=== PATIENT | female | born 1960 | race American Indian/Alaskan Native ===

== ENCOUNTER 2017-05-05 05:57 | Day surgery (SDC) | payer MEDICAID ==
[2017-05-05] MEDS: VIGAMOX OS SCH ×3 (07:10→07:20)
[2017-05-05] MEDS: TETRACAINE 0.5% OS PRN ×2 (07:10→07:15)
[2017-05-05] MEDS: MYDRIACYL OS SCH ×3 (07:10→07:20)
[2017-05-05] MEDS: AK-Dilate OS SCH ×3 (07:10→07:20)
--- NOTE | 2017-05-05 07:41 | Anesthesia Consultation ---
Anesthesia Consult and Med Hx Date of service: 05/05/17 - Airway Anesthetic Teeth Evaluation: Partials ROM Head & Neck: Adequate Mental/Hyoid Distance: Adequate Mallampati Class: Class II Intubation Access Assessment: Probably Good - Pre-Operative Health Status ASA Pre-Surgery Classification: ASA2 Proposed Anesthetic Plan: MAC (HIV) - Pulmonary Hx Smoking: Yes (1PPD FOR 20 YEARS) Hx Asthma: No COPD: No Hx Pneumonia: No Hx Sleep Apnea: No - Cardiovascular System Hx Hypertension: No Hx Coronary Artery Disease: No Hx Heart Attack/AMI: No Hx Angina: No Hx Percutaneous Transluminal Coronary Angioplasty (PTCA): No Hx Pacemaker: No Hx Internal Defibrillator: No Hx Valvular Heart Disease: No Hx Heart Murmur: No Hx Peripheral Vascular Disease: No - Central Nervous System Hx Seizures: No CVA: No Hx Psychiatric Problems: No - Gastrointestinal Hx Ulcer: No - Endocrine Hx End Stage Renal Disease: No Hx Cirrhosis: No - Other Systems Hx Alcohol Use: No Hx Substance Use: No Hx Cancer: No
--- NOTE | 2017-05-05 07:41 | Anesthesia Day of Surgery ---
Anesthesia Day of Surgery - Day of Surgery Patient Examined: Yes Patient H&P Reviewed: Yes Patient is NPO: Yes
[2017-05-05] MEDS ORDERED: NACL 0.9% 1000 ML 1,000 ML IV SCH (08:00)
[2017-05-05] MEDS ORDERED: VERSED ONE (08:36)
[2017-05-05] MEDS ORDERED: WATER FOR INJ (PF) 10 ML ONE (08:37)
[2017-05-05] MEDS ORDERED: DIAMOX PO NR (09:00)
--- NOTE | 2017-05-05 09:01 | Operative Report ---
Operative Report Operative Report: PATIENT'S NAME: DATE OF : DATE OF SURGERY: 05/05/2017 PREOPERATIVE DIAGNOSIS: Cataract left eye POSTOPERATIVE DIAGNOSIS: Same OPERATIVE PROCEDURE: Phacoemulsification with intraocular lens implantation, left eye SURGEON: Le Ruiz M.D. ROAD ENGINEER FREIGHT SURGEON: Margarito Lens: [id number] 19.0 D ANESTHESIA: Monitored anesthesia care in combination with topical and intracameral anesthesia because of the established specific risk of reflux, arrhythmias, or anxiety attacks associated with ocular manipulation, as well as the difficulty of the forklift technician to manage such potentially catastrophic events while simultaneously attempting to complete the surgical procedure and was deemed necessary for the patient's safety to have an Safety Advisor present during the procedure whenever possible. An Safety Advisor was utilized to regulate the intravenous sedation of the patient so the patient was cooperative yet not asleep in order for the patient to successfully maintain fixation of the eye on the operating light of the microscope. COMPLICATIONS: No surgical complications No blood loss. ALLERGIES: No known drug allergies PROGNOSIS: Excellent INDICATIONS FOR SURGERY: The patient is undergoing surgery in the hopes of eliminating or improving these visual difficulties. PROCEDURE: After arriving at the surgery center, the patient was given topical anesthetic and dilating drops, as noted in the record. The patient was then taken into the operating room and given more anesthetic drops. The eyelids , lashes, and lid margins were scrubbed with Betadine solution, and the patient was draped. The Nurse Safety Advisor administered IV sedation and monitored the patient during the procedure. The eye was then fixated with a 0.12, and a stab incision was made in the peripheral clear cornea into the anterior chamber. This was made on my left side. Viscoelastic was next used to fill the anterior chamber. The eye was once again fixated with the 0.12 forceps and a keratome was used make an incision in clear cornea peripherally on my right hand side temporally. The capsule forceps were used to open the central anterior capsule and then make a continuous round capsulotomy. Hydrodissection was carried out utilizing a cannula and balanced salt solution to delineate the cortical material from the capsule and the nucleus from the cortical material. The phaco tip was introduced into the eye and used to remove the anterior cortical material in the area of the capsulotomy. Then the phaco tip was buried into the nucleus, and a chopping instrument was introduced into the eye and used to provide countertraction in the nucleus between this instrument and the phaco tip fracturing the nucleus. This procedure was repeated multiple times, providing multiple small segments of the lens, and then the phaco tip was used to remove each of these segments. An I/A tip was then used to remove the remaining cortex. The anterior chamber was refilled with viscoelastic. An one-piece, acrylic intraocular lens was then placed into an inserting cartridge. The tip of the inserting cartridge was introduced into the keratome incision and into the anterior chamber. The implant was gently advanced through the cartridge and into the eye, where it unfolded, and both haptics were placed in the capsular bag, where it centered nicely and appeared to be well fixated. After placement of the intraocular lens, the I~and~A handpiece was placed back into the eye and used to remove the viscoelastic, including viscoelastic that was behind the optic of the intraocular lens. The anterior chamber was then filled with balanced salt solution, and hydration of the wound was used to cause swelling of the wound and more appropriate watertight closure. When the wound was found to be firm, the patient was asked to comment on how bright the light was. If there was no light perception at all or if the light was substantially dimmer than during the rest of the surgery, the amount of fluid in the eye was decompressed to lower the intraocular pressure until the patient could see the bright light again. This was done to avoid any damage or decreased blood flow to the optic nerve. MEDICATIONS APPLIED AT END OF SURGERY: One drop of Pred Forte and Vigamox The patient was given a shield to wear at night and was instructed not to rub or push on the eye. DISCHARGE SUMMARY: The patient was released in stable condition. The patient and those with the patient were given a written sheet of postoperative instructions and counseling on any abnormal laboratory studies. The patient is to see us tomorrow for follow-up in the office and is to call immediately for any difficulties. Le Ruiz M.D. Date
--- NOTE | 2017-05-05 09:02 | Short Stay Summary ---
Short Stay Documentation Date of service: 05/05/17 - History H&P: obtained from office - Allergies and Medications Current Medications: Allergies No Known Allergies Allergy (Verified 05/04/17 13:46) Home Medications Medication Instructions Recorded Confirmed Last Taken Type Efavirenz/Emtricitab/Tenofovir 1 mg PO QHS 02/01/14 05/05/17 05/04/17 History [Atripla Tablet] Active Medications Acetazolamide (Diamox) 500 mg PO BID ONE Stop: 05/05/17 09:01 Sodium Chloride (Nacl 0.9% 1000 Ml) 1,000 mls @ 100 mls/hr IV DIRECT SARAH Moxifloxacin HCl (Vigamox) 1 drops OS Q5MIN [facility] Stop: 05/05/17 23:59 Last Admin: 05/05/17 07:20 Dose: 1 drops Phenylephrine HCl (Ak-Dilate) 1 drops OS Q5MIN [facility] Stop: 05/05/17 23:59 Last Admin: 05/05/17 07:20 Dose: 1 drops Prednisolone Acetate (Pred Forte 1%) 1 drops OS QID [facility] Tetracaine HCl (Tetracaine 0.5%) 1 drops OS Q5M PRN PRN Reason: Analgesia Stop: 05/05/17 23:59 Last Admin: 05/05/17 07:15 Dose: 1 drops Tropicamide (Mydriacyl) 1 drops OS Q5MIN [facility] Stop: 05/05/17 23:59 Last Admin: 05/05/17 07:20 Dose: 1 drops - Brief post op/procedure progress note Date of procedure: 05/05/17 Pre-op diagnosis: left cataract Post-op diagnosis: same Procedure: Phacoemulsification with intraocular lens insertion left eye Anesthesia: MAC, local Surgeon: NASEEM ESCALERA Estimated blood loss: none Pathology: none Condition: stable - Disposition Condition at discharge: Good Disposition: DC-01 TO HOME OR SELFCARE - Discharge Diagnoses (1) Cataract Status: Acute Qualifiers: Cataract type: age-related Age-related cataract type: nuclear Laterality : left Qualified Code(s): H25.12 - Age-related nuclear cataract, left eye Short Stay Discharge Plan Follow up with: PAMELA CROWE [Other] - 7 Days
[2017-05-05 09:40] VITALS: BP 118/73
[2017-05-05] MEDS ORDERED: PRED FORTE 1% OS SCH (10:00)
--- NOTE | 2017-05-05 14:29 | Post Anesthesia Evaluation ---
- Post Anesthesia Evaluation Patient Participated: Yes Airway Patent: Yes Stable Respiratory Function: Yes Nausea/Vomiting: No Temp > 96.8F: Yes Pain Manageable: Yes Adequeate Hydration: Yes Anesthesia Complications: No
== END 2017-05-05 09:39 | disposition home or self-care (01) ==
LOC: OR 05:57
DX: H26.9 Unspecified cataract (principal); B20 Human immunodeficiency virus [HIV] disease; F17.210 Nicotine dependence, cigarettes, uncomplicated
CPT/HCPCS: 66984; J2250; V2632

== ENCOUNTER 2020-05-24 15:27 | Emergency (ER) | payer MEDICAID ==
--- NOTE | 2020-05-24 15:46 | Event Note ---
ED Screening Note Date of service: 05/24/20 Time: 15:45 ED Screening Note: 59-year-old female with a past medical history of HIV and tobacco use Patient comes in complaining of substernal chest pain; difficulty swallowing solids; decreased appetite; and weight loss Onset about 2 weeks She has an appointment with her primary care doctor on June 06 This initial assessment/diagnostic orders/clinical plan/treatment(s) is/are subject to change based on patients health status, clinical progression and re- assessment by fellow clinical providers in the ED. Further treatment and workup at subsequent clinical providers discretion. Patient/guardian urged not to elope from the ED as their condition may be serious if not clinically assessed and managed. Initial orders include: Chest pain order set
--- NOTE | 2020-05-24 16:13 | XRay Report ---
CHEST 2 VIEWS INDICATION / CLINICAL INFORMATION: Chest Pain. COMPARISON: 02/21/2020 FINDINGS: SUPPORT DEVICES: None. HEART / MEDIASTINUM: Stable. LUNGS / PLEURA: Lungs appear mildly hyperinflated suggesting chronic obstructive pulmonary disease. N o acute pulmonary parenchymal or pleural abnormality is identified. No pneumothorax. ADDITIONAL FINDINGS: No significant additional findings. IMPRESSION: 1. No acute findings. Signer Name: Ozzy Guadarrama MD Signed: 05/24/2020 4:08 PM Workstation Name: [id number]
[2020-05-24 16:14] LABS: Basophils % (Auto) 0.2 % (0.0-1.8); Eosinophils % (Auto) 0.1 % (0.0-4.3); Hemoglobin 11.2 gm/dl (10.1-14.3); Lymphocytes # (Auto) 0.3 K/mm3 (1.2-5.4); Lymphocytes % (Auto) 7.8 % (13.4-35.0); Mean Corpuscular HGB Conc 34 % (30-34); Mean Corpuscular Volume 90 fl (79-97); Monocytes # (Auto) 0.5 K/mm3 (0.0-0.8); Monocytes % (Auto) 12.4 % (0.0-7.3); Platelet Count 167 K/mm3 (140-440); Red Blood Count 3.68 M/mm3 (3.65-5.03); Red Cell Distribution Width 14.1 % (13.2-15.2)
[2020-05-24] MEDS ORDERED: SODIUM CHLORIDE 0.9% 1000 ML 1,000 ML IV ONE (16:34)
[2020-05-24] MEDS ORDERED: ONDANSETRON 4 MG/2 ML INJ IV ONE (16:34)
[2020-05-24 16:36] LABS: Alanine Aminotransferase 7 units/L (7-56); Albumin 3.3 g/dL (3.9-5); BUN/Creatinine Ratio 17; Blood Urea Nitrogen 12 mg/dL (7-17); Calcium 8.7 mg/dL (8.4-10.2); Hemolysis Index 11
--- NOTE | 2020-05-24 16:38 | Emergency Department Report ---
ED General Adult HPI - General Chief complaint: Weakness Stated complaint: CHEST PAIN, LOSS OF WEIGHT Time Seen by Provider: 05/24/20 15:41 Source: patient Mode of arrival: Ambulatory Limitations: No Limitations - History of Present Illness Initial comments: Patient is 59 years old female with history of HIV. Patient stated that she is compliant with her medication. Patient presented to the ER with complaint of decreased appetite for approximately 2 weeks now. She also stated that she has been having difficulty swallowing and pain in her mid chest when she swallows. Patient denied any chest pain, shortness of breath, abdominal pain, vomiting or diarrhea. Patient also denied any fever or chills. Severity scale (0 -10): 0 - Related Data Home Medications Medication Instructions Recorded Confirmed Last Taken Efavirenz/Emtricit/Tenofovr Df 1 mg PO QHS 02/01/14 05/24/20 05/04/17 [Atripla Tablet] Bictegrav/Emtricit/Tenofov Ala 1 tab PO DAILY 05/24/20 05/24/20 Unknown [Biktarvy 50-200-25 mg (Nf)] Megestrol Acetate 20 ml PO DAILY 05/24/20 05/24/20 Unknown Midodrine [Proamatine] 5 mg PO TID 05/24/20 05/24/20 Unknown Allergies Allergy/AdvReac Type Severity Reaction Status Date / Time No Known Allergies Allergy Verified 05/04/17 13:46 ED Review of Systems ROS: Stated complaint: CHEST PAIN, LOSS OF WEIGHT Other details as noted in HPI Comment: All other systems reviewed and negative Constitutional: denies: chills, fever Respiratory: denies: cough, shortness of breath, SOB with exertion Cardiovascular: denies: chest pain Gastrointestinal: nausea. denies: abdominal pain, vomiting, diarrhea, constipation, hematemesis, melena, hematochezia Musculoskeletal: denies: back pain Neurological: weakness. denies: headache, numbness, paresthesias, confusion, abnormal gait ED Past Medical Hx - Past Medical History Previous Medical History?: Yes Hx Hypertension: No Hx Heart Attack/AMI: No Hx Congestive Heart Failure: No Hx Diabetes: No Hx Deep Vein Thrombosis: No Hx Pulmonary Embolism: No Hx Arthritis: No Hx Seizures: No Hx Asthma: No Hx COPD: No Hx Tuberculosis: No Hx Dementia: No Hx HIV: Yes - Surgical History Past Surgical History?: Yes Hx Coronary Stent: No Hx Pacemaker: No Hx Internal Defibrillator: No Hx Appendectomy: Yes Additional Surgical History: appendix removed(2 yrs old) - Social History Smoking Status: Current Every Day Smoker - Medications Home Medications: Home Medications Medication Instructions Recorded Confirmed Last Taken Type Efavirenz/Emtricit/Tenofovr Df 1 mg PO QHS 02/01/14 05/24/20 05/04/17 History [Atripla Tablet] Bictegrav/Emtricit/Tenofov Ala 1 tab PO DAILY 05/24/20 05/24/20 Unknown History [Biktarvy 50-200-25 mg (Nf)] Megestrol Acetate 20 ml PO DAILY 05/24/20 05/24/20 Unknown History Midodrine [Proamatine] 5 mg PO TID 05/24/20 05/24/20 Unknown History ED Physical Exam - General Limitations: No Limitations General appearance: alert, in no apparent distress - Head Head exam: Present: atraumatic, normocephalic, normal inspection - Eye Eye exam: Present: normal appearance - ENT ENT exam: Present: mucous membranes dry - Neck Neck exam: Present: normal inspection, full ROM. Absent: tenderness, meningismus - Respiratory Respiratory exam: Present: normal lung sounds bilaterally - Cardiovascular Cardiovascular Exam: Present: regular rate, normal rhythm, normal heart sounds - GI/Abdominal GI/Abdominal exam: Present: soft, normal bowel sounds. Absent: distended, tenderness, guarding, rebound, rigid, organomegaly, mass, pulsatile mass, hernia - Extremities Exam Extremities exam: Present: normal inspection, full ROM, normal capillary refill. Absent: tenderness - Back Exam Back exam: Present: normal inspection, full ROM. Absent: CVA tenderness (R), CVA tenderness (L) - Neurological Exam Neurological exam: Present: alert, oriented X3, CN II-XII intact - Psychiatric Psychiatric exam: Present: normal mood - Skin Skin exam: Present: warm, intact, normal color ED Course Vital Signs 05/24/20 05/24/20 05/24/20 15:31 16:26 17:01 Temperature 99.4 F Pulse Rate 81 60 62 Respiratory 18 22 19 Rate Blood Pressure 94/61 106/58 Blood Pressure 106/58 [Left] O2 Sat by Pulse 98 96 98 Oximetry 05/24/20 17:15 Temperature Pulse Rate 69 Respiratory 25 H Rate Blood Pressure 106/58 Blood Pressure [Left] O2 Sat by Pulse 91 Oximetry ED Medical Decision Making - Lab Data Result diagrams: 05/24/20 16:01 05/24/20 16:01 - EKG Data -: EKG Interpreted by Me EKG shows normal: sinus rhythm Rate: normal - Radiology Data Radiology results: report reviewed - Medical Decision Making Patient is 59 years old female with history of HIV. Patient stated that she is compliant with her medication. Patient presented to the ER with complaint of decreased appetite for approximately 2 weeks now. She also stated that she has been having difficulty swallowing and pain in her mid chest when she swallows. Patient denied any chest pain, shortness of breath, abdominal pain, vomiting or diarrhea. Patient also denied any fever or chills. Patient remained stable with a stable vital sign. Patient received normal saline and Zofran. Patient stated that she is feeling much better and she asked for a meal tray. Patient has no difficulty eating her meal tray. Labs reviewed and is unremarkable except for slightly low potassium which she has been replaced with K. Dur 40. CT chest with contrast showed no evidence of mass or any other acute abnormalities. Patient given prescription for Zofran and advised to follow-up with her primary care physician in the next 2 to 3 days and to keep her appointment with her primary care physician on June 06 and to return to the ER if she develop any new symptoms. Critical care attestation.: If time is entered above; I have spent that time in minutes in the direct care of this critically ill patient, excluding procedure time. ED Disposition Clinical Impression: Chest pain, Generalized weakness, Difficulty swallowing Disposition: - TO HOME OR SELFCARE Is pt being admited?: No Condition: Stable Instructions: Nonspecific Chest Pain, Adult, Dysphagia Eating Plan, Minced and Moist Foods Referrals: PRIMARY CARE, [Referring] - 3-5 Days
[2020-05-24] MEDS ORDERED: POTASSIUM CHLORIDE ER 20 MEQ TAB PO ONE (18:18)
--- NOTE | 2020-05-24 18:33 | Cat Scan Report ---
CT CHEST WITH CONTRAST INDICATION / CLINICAL INFORMATION: chest pain, difficulty swallowing, HIV. TECHNIQUE: Axial CT images were obtained through the chest after the administration of 100 cc Omnipaque [address] scans at this location are performed using CT dose reduction for ALARA by means of autom ated exposure control. COMPARISON: 05/24/2020 chest radiograph FINDINGS: NECK BASE: No significant abnormality. HEART: No significant abnormality. THORACIC AORTA: No significant abnormality. MEDIASTINUM and BLUE: No significant abnormality. LUNGS/AIRWAYS: Mild dependent density in the bilateral lung bases. Moderate apical predominant pulmon keegan emphysema. PLEURA: No significant pleural effusion. No pneumothorax. UPPER ABDOMEN: Geographic, heterogeneous appearance of the spleen likely secondary to contrast phase. CHEST WALL: None. SKELETAL SYSTEM: No significant abnormality. IMPRESSION: 1. Moderate apical predominant pulmonary emphysema without evidence of acute airspace disease. Signer Name: Ozzy Guadarrama MD Signed: 05/24/2020 6:28 PM Workstation Name: [id number]
[2020-05-24 19:32] LABS: Bilirubin,Urine NEG (Negative); Blood,Urine NEG (Negative); Calcium Oxalate Crystals,Urine 1+; Color,Urine Yellow (Yellow); Mucus,Urine FEW /HPF
[2020-05-24 20:09] VITALS: BP 93/57
== END 2020-05-24 20:12 | disposition home or self-care (01) ==
LOC: ED 15:27
DX: R07.89 Other chest pain (principal); R53.1 Weakness; R13.10 Dysphagia, unspecified; F17.200 Nicotine dependence, unspecified, uncomplicated; Z98.890 Other specified postprocedural states; Z90.49 Acquired absence of other specified parts of digestive tract; Z79.899 Other long term (current) drug therapy
CPT/HCPCS: 36415; 71046; 71260; 80053; 81001; 83690; 84484; 85025; 93005; 96361; 96374; 99284; J2405; J7030; Q9967